=== PATIENT | female | born 1970 | race Caucasian/White ===

== ENCOUNTER → 2016-05-30 | Outpatient (CLI) | payer OTHER ==
[2016-05-30 11:12] LABS: Basophils # (A) 0.2 k/uL (0-0.2); Basophils % (A) 2 %; CH 31.9; CHCM 34.1; Eosinophils # (A) 0.1 k/uL (0-0.7); Eosinophils % (A) 1 %; HCT 39.6 % (34.0-46.0); HDW 2.49; HGB 13.5 gm/dL (11.4-16.0); Luc # (Auto) 0.27; Luc % (Auto) 2; Lymphocytes # (A) 2.1 k/uL (1.0-4.8); Lymphocytes % (A) 13 %; MCV 93.9 fL (80.0-100.0); Mean Platelet Volume 7.8; Monocytes # (A) 0.6 k/uL (0-1.0); Monocytes % (A) 4 %; Neutrophils # (A) 12.4 k/uL (1.3-7.7); Neutrophils % (A) 79 %; RBC 4.21 m/uL (3.80-5.40); RDW 12.5 % (11.5-15.5); WBC 15.7 k/uL (3.8-10.6); WBC (Perox) 16.44
[2016-05-30 11:15] LABS: Appearance,Urine Clear (Clear); Bilirubin,Urine Negative (Negative); Glucose,Urine (UA) Negative (Negative); Ketones,Urine Negative (Negative); Leukocyte Esterase,Urine Negative (Negative); Nitrite,Urine Negative (Negative); Protein,Urine Negative (Negative); Specific Gravity,Urine 1.004 (1.001-1.035); UA Billing (MACRO vs. MICRO) CHEM; Urobilinogen,Urine <2.0 mg/dL (<2.0)
[2016-05-30 11:50] LABS: ALT 33 U/L (9-52); AST 28 U/L (14-36); Alkaline Phosphatase 95 U/L (38-126); Anion Gap 9 mmol/L; Blood Urea Nitrogen 10 mg/dL (7-17); C Reactive Protein 57.3 mg/L (<10.0); Calcium 9.6 mg/dL (8.4-10.2); Carbon Dioxide 28 mmol/L (22-30); Chloride 105 mmol/L (98-107); Cholesterol 187 mg/dL (<200); Creatine Kinase 87 U/L (30-135); Glucose 79 mg/dL (74-99); HDL Cholesterol 45 mg/dL (40-60); Magnesium 1.9 mg/dL (1.6-2.3); Non-African American GFR(MDRD) >60 (>60 ml/min/1.73 sqM); Potassium 4.5 mmol/L (3.5-5.1); Sodium 142 mmol/L (137-145); Total Bilirubin 0.7 mg/dL (0.2-1.3); Total Protein 7.4 g/dL (6.3-8.2); Triglycerides 120 mg/dL (<150)
[2016-05-30 11:51] LABS: Rheumatoid Factor, Qnt <9 IU/mL (<12)
[2016-05-30 12:38] LABS: Vitamin B12 497 pg/mL (239-931)
[2016-05-30 12:57] LABS: Erythrocyte Sedimentation Rate 58 mm/hr (0-20)
[2016-05-31 04:34] LABS: Lyme Antibodies Total(IgG/IgM) 0.11 (<0.90)
[2016-05-31 06:12] LABS: Cyclic Citrullinated Pep IgG 6 UNITS (<20)
== END ==
LOC: LABWHC1 10:05
PROVIDERS: ATTEND Family Medicine
DX: M79.7 Fibromyalgia (principal); M54.12 Radiculopathy, cervical region; D72.829 Elevated white blood cell count, unspecified; G90.09 Other idiopathic peripheral autonomic neuropathy; M13.0 Polyarthritis, unspecified
CPT/HCPCS: 36415; 80053; 80061; 81003; 82306; 82533; 82550; 82607; 83735; 84165; 84439; 84443; 85025; 85652; 86140; 86200; 86334; 86431; 86618; 87040; 87086; 87496

== ENCOUNTER → 2016-06-27 | Outpatient (CLI) | payer OTHER ==
--- NOTE | 2016-06-27 18:02 | MR ---
EXAMINATION TYPE: MR leslie/ana wo/w con DATE OF EXAM: 06/27/2016 11:24 AM COMPARISON: 03/31/2013 HISTORY: Neck and back pain CONTRAST: Performed utilizing 13 mL intravenous MultiHance gadolinium contrast. TECHNIQUE: Multiplanar multiecho imaging on a 3.0 Pamela magnet is performed through the cervical spin e. FINDINGS: The craniovertebral junction is normal. Vertebral body alignment is normal. C7-T1: There is some central disc bulge with mild anterior thecal sac compression. No AP spinal catherine l stenosis present. Neural foramen are patent. No cord contact is evident.. C6-7: There is a broad-based left paracentral disc herniation with moderate anterior thecal sac compr ession. Close approximation with the spinal cord. No signal abnormality is evident. Some cord flatten ing may be present. Borderline spinal canal stenosis may be present. Moderate left and mild right fo raminal narrowing is present. Disc bulging at this level appears stable from comparison. C5-6: Mild left paracentral disc bulge is present with anterior thecal sac contact. No AP spinal catherine l stenosis present. Neural foramen are patent.. C4-5: Very minimal left paracentral disc bulge is present with anterior thecal sac contact. No AP spi nal canal stenosis present. Neural foramen are patent.. C3-4: Small amount of central subligamentous disc herniation may be present. This has mild anterior t hecal sac compression. No spinal canal stenosis or neural foraminal stenosis present.. C2-3: Small central protrusion is present with moderate anterior thecal sac compression. No cord cont act is evident. No spinal canal stenosis or neural foraminal stenosis present.. Following contrast administration, no abnormal enhancement is evident. Findings are stable within the cervical spine from comparison. IMPRESSIONS: 1. Paracentral disc bulge C6-7 moderate anterior thecal sac. Some cord flattening is present. 2. Left paracentral disc bulging in the mid cervical spine with some minimal central protrusion in th e upper cervical spine without cord contact. 3. Moderate left foraminal stenosis C6-C7 EXAMINATION TYPE: MR leslie/ana wo/w con DATE OF EXAM: 06/27/2016 11:24 AM COMPARISON: 03/23/2013 HISTORY: Neck and back pain CONTRAST: 13 mL intravenous MultiHance. TECHNIQUE: Multiplanar, multisequence images of the lumbar spine were acquired. FINDINGS: Cord terminates at the L2 level. There is straightening of the lumbar spine in the sagitta l plane. L5-S1: No significant disc bulge or disc herniation. No spinal canal stenosis. No foraminal stenosi s. Small area of enhancement is within the right paracentral epidural space at L5-S1. Vascular enhan cement. Minimal disc material could be considered. No thecal sac compression is evident.. L4-L5: No focal disc herniation is evident. Minimal disc bulge with anterior thecal sac contact is pr esent. There may be an annular tear present with increased signal on T2-weighted sequences. This is a change from comparison. No spinal canal stenosis. No foraminal stenosis. Disc desiccation is prese nt. L3-L4: No significant disc bulge or disc herniation. No spinal canal stenosis. No foraminal stenosi s. Disc desiccation is present. There is some mild flattening of the disc space.. L2-L3: No significant disc bulge or disc herniation. No spinal canal stenosis. No foraminal stenosi s. . L1-L2: No significant disc bulge or disc herniation. No spinal canal stenosis. No foraminal stenosi s. . T12-L1: No significant disc bulge or disc herniation. No spinal canal stenosis. No foraminal stenos is. . IMPRESSION: 1. Annular tear L4-5. 2. Minimal enhancement in the right epidural space L5-S1.. Short-term follow-up is recommended reeval uation in 3-6 months could be performed. Correlate with radicular symptoms and history
== END ==
LOC: RADMRIMAIN 10:06
PROVIDERS: ATTEND Family Medicine
DX: M50.221 Other cervical disc displacement at C4-C5 level (principal); M48.02 Spinal stenosis, cervical region; M51.36 Other intervertebral disc degeneration, lumbar region
CPT/HCPCS: 72156; 72158; A9577

== ENCOUNTER → 2016-09-20 | Outpatient (CLI) | payer OTHER ==
--- NOTE | 2016-09-20 12:01 | MR ---
EXAMINATION TYPE: MR angio neck wo/w con DATE OF EXAM: 09/20/2016 COMPARISON: NONE HISTORY: ICA aneurysm TECHNIQUE: Time of flight images focusing on the [place] were performed without contrast. FINDINGS: There is a normal origin of the great vessels. There is no significant narrowing of the pro ximal ICAs bilaterally. There is no significant stenosis throughout the visualized carotid and verteb ral systems. The patient's 2 mm aneurysm arising from the supraclinoid internal carotid artery on the right is again identified. This study was not performed through the [place] and it is not a s well-defined as on the previous study.. IMPRESSION: 1. 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 2. NO EVIDENCE OF SIGNIFICANT STENOSIS.
== END | disposition home or self-care (01) ==
LOC: RADMRIMAIN 09:52
PROVIDERS: ATTEND Physician Assistant
DX: I67.1 Cerebral aneurysm, nonruptured (principal)
CPT/HCPCS: 70549; A9577

== ENCOUNTER → 2020-02-08 | Outpatient (CLI) | payer OTHER ==
--- NOTE | 2020-02-08 20:14 | MR ---
EXAMINATION TYPE: MR lumbar spine wo con DATE OF EXAM: 02/08/2020 COMPARISON: MRI lumbar spine June 27, 2016 HISTORY: LBP, radiated into left buttock TECHNIQUE: Multiplanar, multisequence imaging of the lumbar spine is performed without IV contrast. FINDINGS: Sagittal images of the lumbar spine show vertebral body heights to remain satisfactory. Sta ble slight grade 1 retrolisthesis L3 on L4. Multilevel disc desiccation L3-L4 through the L5-S1 level s with mild to moderate disc space narrowing L3-L4 level. The conus medullaris remains normal in pos ition and signal terminating inferior L1 level. The bone marrow signal intensity remains within norm al limits. Mild multilevel anterior spurring redemonstrated. Axial images show T12-L1 and L1-L2 levels to remain within normal limits. Axial images at L2-L3 level demonstrate mild to moderate broad disc bulge and mild facet degenerative changes bilaterally. Spinal canal is preserved. There is mild right-sided anterior inferior neural f oraminal narrowing redemonstrated. Axial images at L3-L4 level show spondylolisthesis with mild/moderate broad disc bulge minimally effa cing anterior thecal sac. There is mild to moderate bilateral anteroinferior neural foraminal narrowi ng is redemonstrated. No significant change from prior. Axial images at L4-L5 level show mild/moderate facet degenerative changes and ligamentum flavum hyper trophy. There is mild to moderate broad-based posterior disc protrusion and posterior annular tear wi th minimal effacement of the anterior thecal sac. There is [id number] bilateral anteroinferior neural foraminal narrowing. No significant change from prior. Axial images at the L5-S1 level show mild facet degenerative changes bilaterally. Focal broad-based c entral disc protrusion minimally effaces the anterior thecal sac as there is increased epidural fat a t this level. There is more prominent additional right paracentral component sagittal image 11 effaci ng right lateral recess. There is mild to moderate right-sided anterior inferior neural foraminal clementine rowing. No exiting nerve encroachment. No significant change from prior. Paraspinal muscle bulk remains preserved. IMPRESSION: Stable spondylosis L3-L4 level. Stable mild to moderate multilevel degenerative changes m id to lower lumbar spine as detailed above.
== END | disposition home or self-care (01) ==
LOC: RADMRIMAIN 19:14
PROVIDERS: ATTEND Family Medicine
DX: M47.26 Other spondylosis with radiculopathy, lumbar region (principal)
CPT/HCPCS: 72148

== ENCOUNTER → 2020-03-02 | Outpatient (CLI) | payer OTHER ==
--- NOTE | 2020-03-02 14:37 | MR ---
EXAMINATION TYPE: MR angio head wo/w con DATE OF EXAM: 03/02/2020 COMPARISON: 01/04/2015 HISTORY: 49-year-old female I67.1 Cerebral aneurysm Technique: High-resolution 3-D [id number] imaging of the [place]. 3-D rotational reconst ructions performed on a dedicated independent workstation. Subsequent pre and postcontrast imaging of the mid to upper neck and intracranial circulation. Again, the reconstructions generated on a [employer] workstation. 6.5 mL intravenous Gadavist gadolinium contrast was administered. FINDINGS: The vertebral and basilar arteries are patent. The internal carotid arteries are patent as is the remainder of the anterior circulation. Redemonstrated saccular aneurysm projecting medially from the clinoid segment right internal carotid artery, axial image 74 currently measuring 3 mm versus 2 mm, previously. No additional aneurysmal changes seen within the intracranial circulation. The carotid bifurcations and internal carotid arteries within the visualized mid to upper neck are pa tent. IMPRESSION: 1. Known clinoid segment right ICA saccular aneurysm is minimally larger at 3 mm versus 2 mm back on 01/04/2015. 2. No significant stenosis, arterial occlusion, or other aneurysmal change is seen. 3. Within the neck, the carotid bifurcations and internal carotid arteries are patent.
== END | disposition home or self-care (01) ==
LOC: RADMRIMAIN 11:47
PROVIDERS: ATTEND Family Medicine
DX: I67.1 Cerebral aneurysm, nonruptured (principal)
CPT/HCPCS: 70546; A9585

== ENCOUNTER → 2023-02-05 | Outpatient (CLI) | payer OTHER ==
--- NOTE | 2023-02-05 14:44 | XR ---
EXAMINATION TYPE: XR knee limited bilateral DATE OF EXAM: 02/05/2023 CLINICAL HISTORY: pain TECHNIQUE: 2 views of bilateral knees submitted. COMPARISON: None. FINDINGS: There is no acute fracture/dislocation. The tri-compartment joint spaces appear within no rmal limits. The overlying soft tissue appears unremarkable. IMPRESSION: There is no acute fracture or dislocation.ICD 10 NO FRACTURE, INITIAL EVALUATION
== END | disposition home or self-care (01) ==
LOC: RADXRMAIN 13:36
PROVIDERS: ATTEND Family Medicine
DX: M25.561 Pain in right knee (principal); M25.562 Pain in left knee